=== PATIENT | male | born 1950 | race Caucasian/White ===

== ENCOUNTER 2020-08-18 14:00 | Outpatient (CLI) | payer MEDICARE ==
--- NOTE | 2020-08-18 17:57 | XRAY Report ---
PROCEDURE: Finger(s) RT INDICATIONS: MONOARTHRITIS / DIP MIDDLE FINGER TECHNIQUE: AP hand, 3 views of the third finger(s) acquired. COMPARISON: None FINDINGS: Bones: No fractures or dislocations. Relatively prominent distal interphalangeal joint degenerative change can be seen of the second throu gh fifth fingers, with joint space narrowing and irregularity. Soft tissues: No suspicious soft tissue calcifications. 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 Reviewed by: Toñito Woodward MD on 08/18/2020 4:55 PM TG Approved by: Toñito Woodward MD on 08/18/2020 4:55 PM TG Station ID: [id number]
== END 2020-08-18 14:01 | disposition home or self-care (01) ==
LOC: DI 14:00
PROVIDERS: ATTEND Family Medicine
DX: M19.041 Primary osteoarthritis, right hand (principal)

== ENCOUNTER 2020-12-26 08:00 | Outpatient (CLI) | payer MEDICARE ==
[2020-12-26 17:48] LABS: BASOPHILS % (AUTO) 0.6 %; EOSINOPHILS # (AUTO) 0.1 10^3/uL (0.0-0.7); HGB - HEMOGLOBIN 13.1 g/dL (14.0-18.0); LYMPHOCYTES # (AUTO) 1.6 10^3/uL (1.5-3.5); LYMPHOCYTES % (AUTO) 32.1 %; MEAN CORPUSCULAR HEMOGLOBIN 31.6 pg (27.0-31.0); MEAN CORPUSCULAR HGB CONC 33.6 g/dL (32.0-36.0); MEAN CORPUSCULAR VOLUME 94.2 fL (80.0-94.0); MEAN PLATELET VOLUME 10.7 fL (7.4-11.4); MONOCYTES # (AUTO) 0.4 10^3/uL (0.0-1.0); NEUTROPHILS # (AUTO) 2.8 10^3/uL (1.5-6.6); NEUTROPHILS % (AUTO) 57.1 %; PLT - PLATELET COUNT 151 10^3/uL (130-450); RED BLOOD COUNT 4.14 10^6/uL (4.70-6.10); RED CELL DISTRIBUTION WIDTH 12.2 % (12.0-15.0); WHITE BLOOD COUNT 4.9 x10^3/uL (4.8-10.8)
[2020-12-26 18:17] LABS: ALBUMIN 4.2 g/dL (3.2-5.5); ALBUMIN/GLOBULIN RATIO 1.5 (1.0-2.2); ALKALINE PHOSPHATASE 58 IU/L (42-121); ALT ALANINE AMINOTRANSFERASE 31 IU/L (10-60); AST ASPARTATE AMINOTRANSFERASE 21 IU/L (10-42); BILIRUBIN,DIRECT 0.1 mg/dL (0.1-0.5); BILIRUBIN,TOTAL 0.8 mg/dL (0.2-1.0); BUN - BLOOD UREA NITROGEN 16 mg/dL (6-20); CALCIUM 8.9 mg/dL (8.5-10.3); CARBON DIOXIDE - CO2 27 mmol/L (21-32); CHLORIDE 104 mmol/L (101-111); CHOL/HDL RATIO 3.9 (<5.0); CHOLESTEROL 174 mg/dL; CREATININE 0.8 mg/dL (0.6-1.2); GFR - MDRD 96 (>89); GLUCOSE 93 mg/dL (70-100); HDL CHOLESTEROL 45 mg/dL; LDL CHOLESTEROL,CALCULATED 90 mg/dL; POTASSIUM 4.3 mmol/L (3.5-5.0); SODIUM 139 mmol/L (135-145); TRIGLYCERIDES 194 mg/dL; VLDL CHOLESTEROL 39 mg/dL
[2020-12-26 18:21] LABS: THYROID STIMULATING HORMONE 0.73 uIU/mL (0.34-5.60)
== END 2020-12-26 23:59 | disposition home or self-care (01) ==
LOC: LAB.WCP 08:00
PROVIDERS: ATTEND Internal Medicine
DX: I10 Essential (primary) hypertension (principal); B35.1 Tinea unguium; Z12.5 Encounter for screening for malignant neoplasm of prostate; E78.5 Hyperlipidemia, unspecified
CPT/HCPCS: 36415; 80053; 80061; 82248; 84443; 85025; G0103; 80076; 83721; 84153

== ENCOUNTER 2021-03-14 13:51 | Outpatient (CLI) | payer MEDICARE ==
[2021-03-14 18:31] LABS: ALBUMIN 4.2 g/dL (3.2-5.5); BILIRUBIN,DIRECT 0.1 mg/dL (0.1-0.5); BILIRUBIN,TOTAL 0.7 mg/dL (0.2-1.0); TOTAL PROTEIN 6.8 g/dL (6.7-8.2)
== END 2021-03-14 23:59 | disposition home or self-care (01) ==
LOC: LAB.WCP 13:51
PROVIDERS: ATTEND Internal Medicine
DX: R97.20 Elevated prostate specific antigen [PSA] (principal); Z80.42 Family history of malignant neoplasm of prostate; B35.1 Tinea unguium
CPT/HCPCS: 36415; 80076; 84153

== ENCOUNTER 2021-11-26 20:19 | Emergency (ER) | payer MEDICARE ==
[2021-11-26] MEDS ORDERED: SODIUM CHLORIDE 0.9% 1,000 ML IV STA (20:27)
[2021-11-26 21:04] LABS: BASOPHILS # (AUTO) 0.1 10^3/uL (0.0-0.1); BASOPHILS % (AUTO) 0.5 %; EOSINOPHILS # (AUTO) 0.1 10^3/uL (0.0-0.7); EOSINOPHILS % (AUTO) 1.3 %; HCT - HEMATOCRIT 31.5 % (42.0-52.0); HGB - HEMOGLOBIN 10.7 g/dL (14.0-18.0); LYMPHOCYTES # (AUTO) 1.1 10^3/uL (1.5-3.5); LYMPHOCYTES % (AUTO) 10.7 %; MEAN CORPUSCULAR HEMOGLOBIN 32.5 pg (27.0-31.0); MEAN CORPUSCULAR VOLUME 95.7 fL (80.0-94.0); MEAN PLATELET VOLUME 8.8 fL (7.4-11.4); MONOCYTES # (AUTO) 0.8 10^3/uL (0.0-1.0); MONOCYTES % (AUTO) 7.1 %; NEUTROPHILS # (AUTO) 8.5 10^3/uL (1.5-6.6); NEUTROPHILS % (AUTO) 80.2 %; PLT - PLATELET COUNT 284 10^3/uL (130-450); RED BLOOD COUNT 3.29 10^6/uL (4.70-6.10); RED CELL DISTRIBUTION WIDTH 13.2 % (12.0-15.0); WHITE BLOOD COUNT 10.6 x10^3/uL (4.8-10.8)
--- OUTSIDE RECORDS SUMMARY | 2021-11-26 21:05 | EXTERNAL MEDICAL SUMMARY RPT | Continuity of Care Document ---
:1950 Author Organization [facility] Address [address] [place] [address] Phone Allergies No information. Encounters No information. Functional Status No information. Immunizations No information. Medications No information. Problems No information. Procedures No information. Results/Labs test date author facility value unit interpret ation Result panel 1 (unknown) (no (unknown) (unknown) (no value) (units (unk nown) date) unknown) (unknown) (no (unknown) (unknown) [address] [place] [address] (units (unknown) date) unknown) (unknown) (no (unknown) (unknown) [place], [place] (units ( unknown) date) [id number] unknown) (unknown) (no (unknown) (unknown) [facility] (units (unknown) date) unknown) (unknown) (no (unknown) (unknown) Magnetic (units (unkno wn) date) Resonance Report unknown) (unknown) (no (unknown) (unknown) Signed (units (unkno wn) date) unknown) (unknown) (no (unknown) (unknown) (no value) (units (unk nown) date) unknown) (unknown) (no (unknown) (unknown) 09/03/21 (units (unkno wn) date) unknown) (unknown) (no (unknown) (unknown) 1. Right apex (units ( unknown) date) peripheral zone unknown) observation measuring 1.4 cm. PI-RADS 4. (unknown) (no (unknown) (unknown) 2. Right mid (units (u nknown) date) gland unknown) transitional zone observation measuring 1.1 cm. PI-RADS 3. (unknown) (no (unknown) (unknown) 3. No (units (unkno wn) date) adenopathy. unknown) (unknown) (no (unknown) (unknown) ADC may be (units (unk nown) date) performed. unknown) (unknown) (no (unknown) (unknown) After (units (unkno wn) date) unknown) (unknown) (no (unknown) (unknown) Approved by: (units (u nknown) date) Humphrey Tobin M.D. unknown) on 09/03/2021 at 16:07 (unknown) (no (unknown) (unknown) Bones: Marrow (units (unknown) date) demonstrates unknown) normal overall signal, without lesions to suggest (unknown) (no (unknown) (unknown) Bowel and (units (unkn own) date) peritoneum: No unknown) pathologic free pelvic fluid. Inferior colon and (unknown) (no (unknown) (unknown) COMPARISON: (units (un known) date) None. unknown) (unknown) (no (unknown) (unknown) Coronal HASTE, (units (unknown) date) axial T1 FSE with unknown) fat saturation, 3-plane nonbreath-hold T2 FSE. (unknown) (no (unknown) (unknown) Dictated by: (units (u nknown) date) Humphrey Tobin M.D. unknown) on 09/03/2021 at 15:34 (unknown) (no (unknown) (unknown) Diffusion (units (unkn own) date) weighted imaging unknown) (DWI) morphology score: (unknown) (no (unknown) (unknown) Dynamic contrast (units (unknown) date) enhancement unknown) (DCE): (unknown) (no (unknown) (unknown) FINDINGS: (units (unkn own) date) unknown) (unknown) (no (unknown) (unknown) FLASH with fat (units (unknown) date) saturation unknown) through the pelvis. Optional diffusion weighted (unknown) (no (unknown) (unknown) Genitourinary (units ( unknown) date) system: Bladder unknown) wall thickness is normal. Distal ureters are (unknown) (no (unknown) (unknown) IMPRESSION: (units (un known) date) unknown) (unknown) (no (unknown) (unknown) INDICATIONS: (units (u nknown) date) PROSTATE CANCER unknown) (unknown) (no (unknown) (unknown) Image quality: (units (unknown) date) Diffusion unknown) weighted and dynamic contrast enhanced images are (unknown) (no (unknown) (unknown) Lesion 1: 1.4 x (units (unknown) date) 0.7 cm, (4/18). unknown) (unknown) (no (unknown) (unknown) Lesion 1: 4 (units (u nknown) date) unknown) (unknown) (no (unknown) (unknown) Lesion 1: Oval (units (unknown) date) unknown) (unknown) (no (unknown) (unknown) Lesion 1: (units (unkn own) date) Present unknown) (unknown) (no (unknown) (unknown) Lesion 1: Right (units (unknown) date) apex peripheral unknown) zone (unknown) (no (unknown) (unknown) Lesion 1: (units (unkn own) date) PI-RADS 4 unknown) (unknown) (no (unknown) (unknown) Lesion 2: 1.1 x (units (unknown) date) 0.8 cm, (09/05). unknown) (unknown) (no (unknown) (unknown) Lesion 2: 3 (units (u nknown) date) unknown) (unknown) (no (unknown) (unknown) Lesion 2: Oval (units (unknown) date) unknown) (unknown) (no (unknown) (unknown) Lesion 2: (units (unkn own) date) Present unknown) (unknown) (no (unknown) (unknown) Lesion 2: Right (units (unknown) date) mid gland unknown) transitional zone (unknown) (no (unknown) (unknown) Lesion 2: (units (unkn own) date) PI-RADS 3 unknown) (unknown) (no (unknown) (unknown) Lesion PI-RADS (units (unknown) date) score: unknown) (unknown) (no (unknown) (unknown) Lesion (units (unkno wn) date) description: unknown) (unknown) (no (unknown) (unknown) Lesion (units (unkno wn) date) location(s) unknown) (sector): (unknown) (no (unknown) (unknown) Lesion size(s): (units (unknown) date) unknown) (unknown) (no (unknown) (unknown) [id number] (units (unk nown) date) unknown) (unknown) (no (unknown) (unknown) Nodes and (units (unkn own) date) vessels: No unknown) pelvic or inguinal adenopathy by size criteria. Iliac (unknown) (no (unknown) (unknown) Prostate: Gland (units (unknown) date) size is 5.2 x 5.1 unknown) x 4.5 cm; ellipsoid gland volume is 62 mL. (unknown) (no (unknown) (unknown) Soft tissues: (units ( unknown) date) No inguinal unknown) hernias. (unknown) (no (unknown) (unknown) T2 weighted (units (un known) date) imaging (T2WI) unknown) morphology score: (unknown) (no (unknown) (unknown) TECHNIQUE: (units (unk nown) date) unknown) (unknown) (no (unknown) (unknown) distended. (units (unk nown) date) unknown) (unknown) (no (unknown) (unknown) loops are normal (units (unknown) date) in caliber. unknown) (unknown) (no (unknown) (unknown) nodules. (units (unkno wn) date) unknown) (unknown) (no (unknown) (unknown) normal in (units (unkn own) date) caliber. unknown) (unknown) (no (unknown) (unknown) significant foci (units (unknown) date) of intrinsic T1 unknown) hyperintensity to suggest hemorrhage. (unknown) (no (unknown) (unknown) the (units (o wn) date) administration of unknown) contrast, dynamic axial, delayed axial and coronal VIBE (unknown) (no (unknown) (unknown) Accession (units (unkn own) date) Number: unknown) [id number] (unknown) (no (unknown) (unknown) Age/Sex: 71 / M (units (unknown) date) Date of unknown) Service: (unknown) (no (unknown) (unknown) : 1950 (units (unknown) date) Acct:[id number] unknown) (unknown) (no (unknown) (unknown) Loc: MRI (units (unkno wn) date) unknown) (unknown) (no (unknown) (unknown) Multiple BPH (units (u nknown) date) unknown) (unknown) (no (unknown) (unknown) No (units (unkno wn) date) unknown) (unknown) (no (unknown) (unknown) Ordering (units (unkno wn) date) Provider: unknown) Jaun Momin MD (unknown) (no (unknown) (unknown) PROCEDURE: MR (units (unknown) date) PELIS WO/W CON unknown) (unknown) (no (unknown) (unknown) Patient: (units (unkno wn) date) [place] unknown) J MR#: (unknown) (no (unknown) (unknown) Procedure: MR (units ( unknown) date) pelvis wo/w con unknown) (unknown) (no (unknown) (unknown) diagnostic. (units (un known) date) unknown) (unknown) (no (unknown) (unknown) imaging and (units (un known) date) unknown) (unknown) (no (unknown) (unknown) metastases. (units (un known) date) unknown) (unknown) (no (unknown) (unknown) non (units (unkno wn) date) unknown) (unknown) (no (unknown) (unknown) or 2-D (units (unkno wn) date) unknown) (unknown) (no (unknown) (unknown) small bowel (units (un known) date) unknown) (unknown) (no (unknown) (unknown) vessels are (units (un known) date) unknown) Social History No information. Vital Signs No information.
[2021-11-26 21:15] LABS: BILIRUBIN,URINE NEGATIVE (NEGATIVE); GLUCOSE, URINE (UA) NEGATIVE (NEGATIVE); KETONES,URINE (UA) TRACE mg/dL (NEGATIVE); LEUKOCYTE ESTERASE, URINE TRACE (NEGATIVE); NITRITE,URINE NEGATIVE (NEGATIVE); OCCULT BLOOD,URINE LARGE (NEGATIVE); PH,URINE 5.5 PH (5.0-7.5); PROTEIN,URINE 100 mg/dL (NEGATIVE); UROBILINOGEN,URINE 0.2 (NORMAL) E.U./dL (NORMAL)
[2021-11-26 21:16] LABS: ALBUMIN 3.6 g/dL (3.2-5.5); ALBUMIN/GLOBULIN RATIO 1.1 (1.0-2.2); BILIRUBIN,TOTAL 0.8 mg/dL (0.2-1.0); CALCIUM 8.9 mg/dL (8.5-10.3); CREATININE 0.9 mg/dL (0.6-1.2); POTASSIUM 3.8 mmol/L (3.5-5.0); TOTAL PROTEIN 6.8 g/dL (6.7-8.2)
[2021-11-26 21:16] LABS: CLARITY,URINE CLOUDY (CLEAR)
[2021-11-26 21:27] LABS: BACTERIA,URINE Rare /HPF (None Seen); RBC,URINE TNTC /HPF (0-5); SQUAMOUS EPITHELIAL CELL,UR RARE Squamous (<= Few)
--- NOTE | 2021-11-26 21:59 | ED Physician Documentation ---
History of Present Illness - Stated complaint Stated Complaint: SENT BY DR - Chief complaint Chief Complaint: General - History obtained from History obtained from: Patient - Additonal information Additional information: Otherwise healthy 71-year-old gentleman with mild hypertension had a prostatectomy 6 days ago. He was kept an extra day in the hospital for bleeding and discharged with a hematocrit of 25. His urologist, Dr. aJun Momin called me prior to arrival. This evening he had made her drink very much he was standing at the counter and felt woozy. Lasts about half an hour and then he ate some pizza now feels better. No significant pain. No fevers or chills. Review of Systems Constitutional: denies: Fever, Chills Cardiac: denies: Chest pain / pressure, Palpitations Respiratory: denies: Dyspnea, Cough PD PAST MEDICAL HISTORY - Allergies Allergies/Adverse Reactions: Allergies Allergy/AdvReac Type Severity Reaction Status Date / Time morphine Allergy Nausea Verified 11/26/21 20:49 PD ED PE NORMAL - Vitals Vital signs reviewed: Yes - General General: Alert and oriented X 3, No acute distress - Cardiac Cardiac: RRR, No murmur - Respiratory Respiratory: No respiratory distress, Clear bilaterally - Abdomen Abdomen: Normal bowel sounds, Soft, Other (Bruising across the low abdomen, WOLF drain in place with about 20 mL of bloody serous drainage, Barone in place with clear urine.) - Back Back: No CVA TTP - Extremities Extremities: No edema, No calf tenderness / cord - Neuro Neuro: Alert and oriented X 3, Normal speech Results - Vitals Vitals: Vital Signs - 24 hr 11/26/21 11/26/21 11/26/21 20:37 21:51 22:13 Temperature 36.6 C Heart Rate 73 72 70 Respiratory 16 18 17 Rate Blood Pressure 162/74 H 144/70 H 138/89 H O2 Saturation 100 99 98 Oxygen O2 Source Room air - Labs Labs: Laboratory Tests 11/26/21 11/26/21 11/26/21 20:55 20:55 20:57 WBC 10.6 RBC 3.29 L Hgb 10.7 L Hct 31.5 L MCV 95.7 H MCH 32.5 H MCHC 34.0 RDW 13.2 Plt Count 284 MPV 8.8 Neut # (Auto) 8.5 H Lymph # (Auto) 1.1 L Ness # (Auto) 0.8 Eos # (Auto) 0.1 Baso # (Auto) 0.1 Absolute Nucleated RBC 0.00 Nucleated RBC % 0.0 Sodium 136 Potassium 3.8 Chloride 103 Carbon Dioxide 27 Anion Gap 6.0 BUN 28 H Creatinine 0.9 Estimated GFR (MDRD) 83 L Glucose 175 H Calcium 8.9 Total Bilirubin 0.8 AST 23 ALT 28 Alkaline Phosphatase 55 Total Protein 6.8 Albumin 3.6 Globulin 3.2 Albumin/Globulin Ratio 1.1 Lipase 48 Urine Color YELLOW Urine Clarity CLOUDY Urine pH 5.5 Ur Specific [place] >=1.030 H Urine Protein 100 H Urine Glucose (UA) NEGATIVE Urine Ketones TRACE Urine Occult Blood LARGE H Urine Nitrite NEGATIVE Urine Bilirubin NEGATIVE Urine Urobilinogen 0.2 (NORMAL) Ur Leukocyte Esterase TRACE H Urine RBC TNTC H Urine WBC 6-10 H Ur Squamous Epith Cells RARE Squamous Urine Bacteria Rare Ur Microscopic Review INDICATED Urine Culture Comments INDICATED PD MEDICAL DECISION MAKING - ED course ED course: 71-year-old gentleman a week out from a prostatectomy had a dizzy episode that was likely related to poor p.o. intake as it resolved after eating. His hematocrit has come up since discharge and really nothing else on history, physical, or labs to suggest a more insidious cause. Results were discussed by phone with Dr. Momin his urologist and he will follow-up with the patient. Departure - Departure Disposition: 01 Home, Self Care Clinical Impression: Dizziness, Hx of prostatectomy Condition: Good Record reviewed to determine appropriate education?: Yes Instructions: ED Near Syncope Unkn Comments: As discussed, your blood work is improved since discharge, today your hemoglobin was 10.7 and hematocrit 31.5. Blood sugar up a bit at 175 and electrolytes normal with normal kidney function. Dr. Momin is aware of the results and plans to touch base with you tomorrow. Drink plenty of fluids and eat well. Return if worse. Discharge Date/Time: 11/26/21 22:15
[2021-11-26 22:13] VITALS: BP 138/89
== END 2021-11-26 22:15 | disposition home or self-care (01) ==
LOC: ED 20:19
DX: R42 Dizziness and giddiness (principal); Z98.890 Other specified postprocedural states
CPT/HCPCS: 36415; 80053; 81001; 81003; 83690; 85025; 87086; 99282; 99283

== ENCOUNTER 2022-06-17 14:30 | Outpatient (CLI) | payer MEDICARE | END 2022-06-17 14:31 | disposition home or self-care (01) | LOC: LAB 14:30 | PROVIDERS: ATTEND Internal Medicine | DX: R23.8 Other skin changes (principal) | CPT/HCPCS: 81599; 85240; 85245; 85246 ==

== ENCOUNTER 2022-07-22 10:55 | Outpatient (CLI) | payer MEDICARE | END 2022-07-22 10:56 | disposition home or self-care (01) | LOC: RT 10:55 | PROVIDERS: ATTEND Internal Medicine | DX: R05.3 Chronic cough (principal) | CPT/HCPCS: 94010; 94729 ==

== ENCOUNTER 2022-08-26 13:26 | Outpatient (CLI) | payer MEDICARE | END 2022-08-26 13:27 | disposition home or self-care (01) | LOC: LAB 13:26 | PROVIDERS: ATTEND Urology | DX: C61 Malignant neoplasm of prostate (principal) | CPT/HCPCS: 81599; 84153 ==

== ENCOUNTER 2022-12-22 12:01 | Outpatient (CLI) | payer MEDICARE ==
[2022-12-22 12:34] LABS: ALBUMIN 4.2 g/dL (3.2-5.5); ALKALINE PHOSPHATASE 68 IU/L (42-121); ALT ALANINE AMINOTRANSFERASE 20 IU/L (10-60); AST ASPARTATE AMINOTRANSFERASE 16 IU/L (10-42); BILIRUBIN,DIRECT < 0.10 mg/dL (0.03-0.18); BILIRUBIN,TOTAL 0.4 mg/dL (0.2-1.0); TOTAL PROTEIN 6.9 g/dL (6.4-8.9)
== END 2022-12-22 12:02 | disposition home or self-care (01) ==
LOC: LAB 12:01
PROVIDERS: ATTEND Internal Medicine
DX: B35.1 Tinea unguium (principal)
CPT/HCPCS: 36415; 80076

== ENCOUNTER 2023-02-26 13:55 | Outpatient (CLI) | payer MEDICARE ==
[2023-02-26 14:06] LABS: BASOPHILS % (AUTO) 0.5 %; EOSINOPHILS # (AUTO) 0.1 10^3/uL (0.0-0.7); EOSINOPHILS % (AUTO) 1.8 %; HCT - HEMATOCRIT 37.9 % (42.0-52.0); HGB - HEMOGLOBIN 13.3 g/dL (14.0-18.0); LYMPHOCYTES # (AUTO) 1.8 10^3/uL (1.5-3.5); LYMPHOCYTES % (AUTO) 29.7 %; MEAN CORPUSCULAR HEMOGLOBIN 32.7 pg (27.0-31.0); MEAN CORPUSCULAR HGB CONC 35.1 g/dL (32.0-36.0); MEAN CORPUSCULAR VOLUME 93.1 fL (80.0-94.0); MEAN PLATELET VOLUME 8.8 fL (7.4-11.4); MONOCYTES # (AUTO) 0.6 10^3/uL (0.0-1.0); MONOCYTES % (AUTO) 9.2 %; NEUTROPHILS # (AUTO) 3.5 10^3/uL (1.5-6.6); NEUTROPHILS % (AUTO) 58.6 %; PLT - PLATELET COUNT 154 10^3/uL (130-450); RED BLOOD COUNT 4.07 10^6/uL (4.70-6.10); RED CELL DISTRIBUTION WIDTH 12.7 % (12.0-15.0)
[2023-02-26 14:27] LABS: % IRON SATURATION 36 % (20-50); ALBUMIN 4.2 g/dL (3.2-5.5); ALBUMIN/GLOBULIN RATIO 1.7 (1.0-2.2); ALKALINE PHOSPHATASE 73 IU/L (42-121); ALT ALANINE AMINOTRANSFERASE 25 IU/L (10-60); AST ASPARTATE AMINOTRANSFERASE 18 IU/L (10-42); BILIRUBIN,TOTAL 0.4 mg/dL (0.2-1.0); BUN - BLOOD UREA NITROGEN 23 mg/dL (6-20); CARBON DIOXIDE - CO2 30 mmol/L (21-32); CHLORIDE 106 mmol/L (101-111); CHOL/HDL RATIO 3.9 (<5.0); CHOLESTEROL 160 mg/dL; CREATININE 0.9 mg/dL (0.6-1.3); GFR - MDRD 83 (>89); GLUCOSE 81 mg/dL (74-104); HDL CHOLESTEROL 41 mg/dL; IRON 98 ug/dL (50-212); LDL CHOLESTEROL,CALCULATED 58 mg/dL; LDL/HDL RATIO 1.4 (<3.6); POTASSIUM 4.1 mmol/L (3.5-4.5); SODIUM 141 mmol/L (135-145); TOTAL IRON BINDING CAPACITY 269 ug/dL (250-450); TOTAL PROTEIN 6.7 g/dL (6.4-8.9); TRANSFERRIN 192 mg/dL (203-362); TRIGLYCERIDES 303 mg/dL (48-352); VLDL CHOLESTEROL 61 mg/dL
[2023-02-26 14:45] LABS: FERRITIN 127.7 ng/mL (23.9-336.2)
== END 2023-02-26 13:56 | disposition home or self-care (01) ==
LOC: LAB 13:55
PROVIDERS: ATTEND Internal Medicine
DX: C61 Malignant neoplasm of prostate (principal); E78.5 Hyperlipidemia, unspecified; R23.8 Other skin changes
CPT/HCPCS: 36415; 80053; 80061; 82607; 82728; 83540; 83721; 84153; 84466; 85025

== ENCOUNTER 2023-09-20 09:35 | Outpatient (CLI) | payer MEDICARE ==
[2023-09-20 10:02] LABS: ALBUMIN 4.2 g/dL (3.2-5.5); ALKALINE PHOSPHATASE 78 IU/L (42-121); ALT ALANINE AMINOTRANSFERASE 31 IU/L (10-60); AST ASPARTATE AMINOTRANSFERASE 20 IU/L (10-42); BILIRUBIN,DIRECT < 0.10 mg/dL (0.03-0.18); BILIRUBIN,TOTAL 0.4 mg/dL (0.2-1.0); TOTAL PROTEIN 6.3 g/dL (6.4-8.9)
== END 2023-09-20 09:36 | disposition home or self-care (01) ==
LOC: LAB 09:35
PROVIDERS: ATTEND Internal Medicine
DX: B35.1 Tinea unguium (principal)
CPT/HCPCS: 36415; 80076

== ENCOUNTER 2023-10-14 09:03 | Outpatient (CLI) | payer MEDICARE ==
[2023-10-14 09:34] LABS: ALBUMIN 4.3 g/dL (3.2-5.5); ALBUMIN/GLOBULIN RATIO 1.8 (1.0-2.2); BILIRUBIN,TOTAL 0.5 mg/dL (0.2-1.0); CALCIUM 9.5 mg/dL (8.5-10.3); CREATININE 0.9 mg/dL (0.6-1.3); POTASSIUM 4.6 mmol/L (3.5-4.5); TOTAL PROTEIN 6.7 g/dL (6.4-8.9)
== END 2023-10-14 09:04 | disposition home or self-care (01) ==
LOC: LAB 09:03
PROVIDERS: ATTEND Internal Medicine
DX: D12.6 Benign neoplasm of colon, unspecified (principal); I10 Essential (primary) hypertension
CPT/HCPCS: 36415; 80053; 84153